=== PATIENT | male | born 1980 | race Caucasian/White ===

== ENCOUNTER 2017-09-08 16:49 | Emergency (ER) | payer SELFPAY ==
[~2017-09-08] VITALS: Ht 165.1 cm; Wt 72.6 kg
[2017-09-08 17:43] VITALS: Ht 165.1 cm; Wt 72.6 kg
[2017-09-09] VITALS: BP 120/71
== END 2017-09-09 00:01 | disposition home or self-care (01) ==
LOC: ED 16:49
DX: S61.412A Laceration without foreign body of left hand, initial encounter (principal); W31.0XXA Contact with mining and earth-drilling machinery, initial encounter; Y93.89 Activity, other specified; Y92.009 Unspecified place in unspecified non-institutional (private) residence as the place of occurrence of the external cause; Y99.8 Other external cause status
CPT/HCPCS: J2001